=== PATIENT | male | born 1965 ===

== ENCOUNTER 2019-07-29 09:21 | Outpatient (CLI) | payer OTHER ==
[~2019-07-29] VITALS: Ht 185.4 cm; Wt 99.8 kg
[2019-07-29 14:02] VITALS: BP 102/72
[2019-07-29] MEDS ORDERED: OMEPRAZOLE20 M2 ORAL (14:02)
--- NOTE | 2019-07-29 18:14 | Consultation ---
DATE OF CONSULTATION: 07/29/2019 CHIEF COMPLAINT: Referral for screening colonoscopy. PAST MEDICAL HISTORY: 1. GERD. 2. Hemorrhoids. 3. Sleep apnea on CPAP. 4. History of H. pylori infection status post treatment. PAST SURGICAL HISTORY: Hernia repair, hemorrhoid surgery. MEDICATIONS: Omeprazole. FAMILY HISTORY: Noncontributory. SOCIAL HISTORY: The patient denies any tobacco, alcohol, or drug abuse. ALLERGIES: No known drug allergies. REVIEW OF SYSTEMS: Positive for GERD. PHYSICAL EXAMINATION: VITAL SIGNS: Temperature 98.2, blood pressure 102/72, pulse 82, respirations 20. HEENT: Normocephalic and atraumatic. Sclerae anicteric. NECK: Supple. No evidence of obvious lymphadenopathy. CARDIOVASCULAR: Regular rate and rhythm. Plus S1, S2. LUNGS: Clear to auscultation bilaterally. ABDOMEN: Positive bowel sounds. Soft and nontender. No rebound. No guarding. No peritoneal sign. EXTREMITIES: No cyanosis. No clubbing. No edema. ASSESSMENT AND PLAN: A 54-year-old male referred for screening colonoscopy. Apparently, he had a colonoscopy 5 years ago, had 3 to 4 polyps. The patient needs another colonoscopy. The patient was given instruction for colonoscopy. Risks and benefits of procedure was explained to him. The prep was explained to him. We are going to schedule when authorization is obtained. Aurelio Sam M.D. DR: Danielle JOB#: [id number] CC:
== END 2019-07-29 14:30 | disposition home or self-care (01) ==
LOC: PAN 09:21
DX: K21.9 Gastro-esophageal reflux disease without esophagitis (principal); G47.30 Sleep apnea, unspecified; Z79.899 Other long term (current) drug therapy
CPT/HCPCS: G0463

== ENCOUNTER 2019-09-04 11:22 | Outpatient (CLI) | payer OTHER ==
[~2019-09-04 11:22] MED LIST: OMEPRAZOLE20 M2 ORAL
--- NOTE | 2019-09-04 12:09 | General Progress Note ---
Assessment/Plan Assessment/Plan: 2 colon polyps Repeat colonoscopy in 3 months Subjective ROS Limited/Unobtainable: No Allergies: Coded Allergies: No Known Allergies (Unverified , 07/29/19) Objective General Appearance: alert EENT: normal ENT inspection Neck: supple Cardiovascular: normal rate Respiratory/Chest: decreased breath sounds Abdomen: normal bowel sounds, non tender, soft Extremities: non-tender Aurelio Sam MD September 04, 2019 12:09
[2019-09-04 15:20] VITALS: BP 113/70
== END 2019-09-04 13:22 | disposition home or self-care (01) ==
LOC: PAN 11:22
DX: K63.5 Polyp of colon (principal)
CPT/HCPCS: 99212